=== PATIENT | male | born 1945 | race Hispanic/Latino ===

== ENCOUNTER 2019-10-29 23:52 | Emergency (ER) | payer OTHER ==
[2019-10-29] MEDS ORDERED: SODIUM CHLORIDE IRRIG SOLUTION 1,000 ML IR ONE (23:53)
[2019-10-30 00:25] LABS: APPEARANCE,URINE Clear (CLEAR); BILIRUBIN,URINE Negative (NEGATIVE); COLOR,URINE Yellow (YELLOW); GLUCOSE, URINE (UA) >=1000 mg/dL (NEGATIVE); KETONES,URINE Negative (NEGATIVE); LEUKOCYTE ESTERASE ,URINE Negative (NEGATIVE); NITRATE,URINE Negative (NEGATIVE); OCCULT BLOOD,URINE Negative (NEGATIVE); PH,URINE 6.5 (5.0-8.0); PROTEIN,URINE POS 2+ mg/dL (NEGATIVE); UROBILINOGEN,URINE 0.2 mg/dL (0.2-1.0)
[2019-10-30 00:39] LABS: ALBUMIN 3.6 g/dL (3.5-5.0); BACTERIA,URINE None Seen /HPF (None Seen); BILIRUBIN,TOTAL 0.3 mg/dL (0.2-1.0); CREATININE 2.6 mg/dL (0.5-1.5); RBC,URINE 0-1 /HPF (0-1); SQUAMOUS EPITHELIAL CELL,UR Rare /HPF (0-2); WBC,URINE None Seen /HPF (0-1); YEAST,URINE BUDDING None Seen /HPF (None Seen)
[2019-10-30 00:42] LABS: BASE EXCESS,VENOUS BLOOD GAS -1.9 (-2.0-3.0); HCO3,VENOUS BLOOD GAS 22.9 (21.0-28.0); PCO2,VENOUS BLOOD GAS 39 (35-48); PH,VENOUS BLOOD GAS 7.382 (7.350-7.450)
[2019-10-30 00:43] LABS: BASOPHILS % (AUTO) 0.5 % (0.0-5.0); EOSINOPHILS % (AUTO) 1.3 % (0.0-8.0); HEMATOCRIT 29.3 % (42-54); LYMPHOCYTES % (AUTO) 12.8 % (21.0-51.0); MEAN CORPUSCULAR HEMOGLOBIN 29.7 pg (27.0-33.0); MEAN CORPUSCULAR HGB CONC 33.1 g/dL (32.0-36.0); MEAN CORPUSCULAR VOLUME 89.6 fL (79-99); MONOCYTES % (AUTO) 5.5 % (3.0-13.0); NEUTROPHILS % (AUTO) 79.2 % (40.0-77.0); PLATELET COUNT (AUTO) 269 K/uL (130-400); RED BLOOD CELL COUNT(AUTO) 3.27 MIL/uL (4.50-6.20); RED CELL DISTRIBUTION WIDTH 14.8 % (11.0-15.5); WHITE BLOOD COUNT (AUTO) 9.1 K/uL (4.8-10.8)
[2019-10-30] MEDS ORDERED: INSULIN HUMULIN R 100 UNIT/ML 3ML ONE (02:02)
== END 2019-10-30 03:10 | disposition home or self-care (01) ==
LOC: EDBD 23:52 → EDH 23:52
DX: E86.9 Volume depletion, unspecified (principal); E11.65 Type 2 diabetes mellitus with hyperglycemia; Z72.4 Inappropriate diet and eating habits; I10 Essential (primary) hypertension
CPT/HCPCS: 36415; 80053; 81001; 82010; 82550; 82803; 82948 ×3; 83605; 83690; 84484; 85025; 96361; 96374; 99283; J1815